=== PATIENT | female | born 1960 | race Caucasian/White ===

== ENCOUNTER 2017-12-26 19:40 | Emergency (ER) | payer OTHER ==
[2017-12-26 20:24] LABS: BASO % 0.5 % (0.0-2.0); EOS # 0.1 K/uL (0.0-0.7); EOS % 1.1 % (0.0-4.0); HEMOGLOBIN 12.1 g/dL (11.0-16.0); LYMPH # 0.9 K/uL (1.0-4.3); LYMPH % 10.2 % (20.0-40.0); MEAN CORPUSCULAR HEMOGLOBIN 30.2 pg (27.0-31.0); MEAN CORPUSCULAR HGB CONC 34.3 g/dL (33.0-37.0); MEAN PLATELET VOLUME 8.5 fL (7.2-11.7); MONO # 1.3 K/uL (0.0-0.8); MONO % 13.7 % (0.0-10.0); NEUT # 6.9 K/uL (1.8-7.0); NEUT % 74.5 % (50.0-75.0); RBC 4.02 Mil/uL (3.80-5.20); RED CELL DISTRIBUTION WIDTH 13.3 % (11.5-14.5); WHITE BLOOD COUNT 9.2 K/uL (4.8-10.8)
[2017-12-26 20:32] LABS: SQUAMOUS EPITHIAL 5 /hpf (0-5); URINE BACTERIA RARE (<OCC); URINE BILIRUBIN NEGATIVE (NEGATIVE); URINE BLOOD 2+ (NEGATIVE); URINE CLARITY Hazy (Clear); URINE COLOR Yellow (YELLOW); URINE GLUCOSE (UA) NORMAL (Normal); URINE LEUKOCYTE ESTERASE NEG Leu/uL (Negative); URINE PROTEIN 2+ mg/dL (NEGATIVE); URINE UROBILINOGEN NORMAL mg/dL (0.2-1.0)
--- NOTE | 2017-12-26 20:32 | C.PDOC ---
History Of Present Illness 57 y/o female presents to the ED for abdominal pain. Patient is complaining of nausea, vomiting, and a reduced appetite for the past 7 days intermittently. She felt her symptoms worsened today prompting her to come into ED. Patient describes her abdominal pain a 5 out of 10. Denies any fever or chills. PMD:None provided Time Seen by Provider: 12/26/17 20:30 Chief Complaint (Nursing): Abdominal Pain History Per: Patient History/Exam Limitations: no limitations Onset/Duration Of Symptoms: Days (x7) Current Symptoms Are (Timing): Worse Location Of Pain/Discomfort: Diffuse Quality Of Discomfort: "Pain" Associated Symptoms: Nausea, Vomiting, Loss Of Appetite. denies: Fever, Chills Recent travel outside of the [place]: No Past Medical History Vital Signs: Last Vital Signs Temp 99.0 F 12/26/17 19:44 Pulse 84 12/26/17 19:44 Resp 18 12/26/17 19:44 BP 174/84 H 12/26/17 19:44 Pulse Ox 100 12/26/17 21:27 - Medical History PMH: HTN Denies: Chronic Kidney Disease Surgical History: Tonsillectomy Family History: States: No Known Family Hx - Social History Hx Tobacco Use: No Hx Alcohol Use: Yes Hx Substance Use: No - Immunization History Hx Tetanus Toxoid Vaccination: No Hx Influenza Vaccination: Yes Hx Pneumococcal Vaccination: No Review Of Systems Constitutional: Positive for: Other (reduced appetite). Negative for: Fever, Chills Gastrointestinal: Positive for: Nausea, Vomiting, Abdominal Pain (x7 days) Physical Exam - Physical Exam Appears: Non-toxic, No Acute Distress Skin: Warm, Dry Head: Normacephalic Eye(s): bilateral: Normal Inspection Oral Mucosa: Moist Neck: Trachea Midline, Supple Chest: Symmetrical Cardiovascular: Rhythm Regular Respiratory: No Rales, No Rhonchi, No Wheezing Gastrointestinal/Abdominal: Tenderness (diffused abdominal tenderness), Guarding , No Rebound Extremity: Normal ROM Extremity: Bilateral: Atraumatic Neurological/Psych: Oriented x3 Gait: Steady ED Course And Treatment - Laboratory Results Result Diagrams: 12/26/17 20:20 12/26/17 20:20 O2 Sat by Pulse Oximetry: 100 (RA) Pulse Ox Interpretation: Normal Reevaluation Time: 22:32 Reassessment Condition: Improved Medical Decision Making Medical Decision Making: Upon provider reevaluation patient is feeling better, is medically stable, and requires no further treatment in the ED at this time. Patient will be discharged home with Rx for flagyl, zofran, naproxen . Counseling was provided and all questions were answered regarding diagnosis and need for follow up with the referred clinic. There is agreement to discharge plan. Return if symptoms persist or worsen.. Copies of blood work and ct scan given Disposition Counseled Patient/Family Regarding: Studies Performed, Diagnosis, Need For Followup, Rx Given - Disposition Referrals: [facility] [Outside] [facility] [Outside] Disposition: HOME/ ROUTINE Disposition Time: 20:31 Condition: FAIR Additional Instructions: Please return if symptoms recur Prescriptions: Metronidazole [Flagyl] 500 mg PO TID #21 tablet Naproxen [Naprosyn] 1 tab PO BID PRN #25 tab PRN Reason: Pain Ondansetron ODT [Zofran ODT] 1 odt PO BID PRN #6 odt PRN Reason: Nausea/Vomiting Instructions: Colic (DC) Forms: [employer] (Mosotho) - Clinical Impression Clinical Impression: Abdominal pain, Lesion of adrenal gland, Liver lesion, Colitis, nonspecific - Scribe Statement The provider has reviewed the documentation as recorded by the Scribe ( Rebecca Manuel) All medical record entries made by the Scribe were at my direction and personally dictated by me. I have reviewed the chart and agree that the record accurately reflects my personal performance of the history, physical exam, medical decision making, and the department course for this patient. I have also personally directed, reviewed, and agree with the discharge instructions and disposition.
[2017-12-26 20:36] LABS: ALB/GLOB RATIO 1.1 (1.0-2.1); ALBUMIN 3.8 g/dL (3.5-5.0); CALCIUM 8.5 mg/dl (8.6-10.4); GFR AFRICAN-AMERICAN > 60; GFR NON-AFRICAN AMERICAN > 60
[2017-12-26 20:46] LABS: ALT/SGPT 29 U/L (9-52); AST/SGOT 30 U/L (14-36); BLOOD UREA NITROGEN 10 mg/dL (7-17)
[2017-12-26] MEDS ORDERED: Potassium Chloride 20 mEq ER Tab PO STA (21:14)
[2017-12-26] MEDS ORDERED: Potassium Chloride 20 mEq ER Tab PO ONE (21:18)
[2017-12-26] MEDS ORDERED: Potassium Chloride 20 mEq 100 ML ONE (21:18)
[2017-12-26] MEDS ORDERED: Iodixanol 320 MG/ML 100 ML BOTTLE IV ONE (21:19)
--- NOTE | 2017-12-26 22:09 | CT ---
EXAM: CT Abdomen and Pelvis With Intravenous Contrast CLINICAL HISTORY: 57 years old, female; Pain and signs and symptoms; Vomiting; Abdominal pain; Generalized; Additional info: Abd pain, nausea/vomiting TECHNIQUE: Axial computed tomography images of the abdomen and pelvis with intravenous contrast. All CT scans at this facility use one or more dose reduction techniques, viz.: automated exposure control; ma/kV adjustment per patient size (including targeted exams where dose is matched to indication; i.e. head); or iterative reconstruction technique. Coronal and sagittal reformatted images were created and reviewed. CONTRAST: 100 mL of visipaque administered intravenously. COMPARISON: No relevant prior studies available. FINDINGS: Lung bases: Minimal atelectasis/scarring. Mediastinum: Moderate-sized hiatal hernia. ABDOMEN: Liver: Probable mild fatty infiltration. Few < 0.5 cm lesions. Gallbladder and bile ducts: No calcified stones. No ductal dilation. Pancreas: No ductal dilation. No mass. Spleen: No splenomegaly. Adrenals: 1.7 x 1.6 x 2.0 cm lesion within RIGHT adrenal gland, indeterminate by CT criteria. Nodular hypertrophy of LEFT adrenal gland. Kidneys and ureters: No mass. Peripelvic cysts. No hydronephrosis. Stomach and bowel: Mild to predominantly moderate mural thickening of large bowel. Mild stranding within adjacent fat. No obstruction. PELVIS: Appendix: Normal caliber. No inflammation. Bladder: Unremarkable. Reproductive: Unremarkable as visualized. ABDOMEN and PELVIS: Intraperitoneal space: No significant fluid collection. No free air. Bones/joints: Mild degenerative changes of lower thoracic spine. Facet osteoarthrosis within lower lumbar spine with anterolisthesis. No acute fracture. Soft tissues: Small umbilical hernia containing fat. Small midline ventral hernia containing fat. Vasculature: Unremarkable. No aneurysm. Lymph nodes: No pathologically enlarged lymph nodes. IMPRESSION: 1. Colitis, nonspecific. Consider inflammatory or infectious etiologies. 2. Adrenal lesion, indeterminate. Recommend nonemergent MRI. 3. Liver lesions. For patients with low to average risk of malignancy, no further follow-up is necessary. For patients with high risk of malignancy (known malignancy that can metastasize or other risk factors), recommend follow-up abdominal CT or MR in 6 months. 4. Incidental/non-acute findings are described above.
[2017-12-26 23:31] VITALS: BP 121/72; PULSE 72; RESP 16; TEMP 100; O2SAT 96
== END 2017-12-26 23:33 | disposition home or self-care (01) ==
LOC: C.ER 19:40
DX: K52.9 Noninfective gastroenteritis and colitis, unspecified (principal); E27.9 Disorder of adrenal gland, unspecified; K76.9 Liver disease, unspecified; R10.9 Unspecified abdominal pain
CPT/HCPCS: 74177; 80053; 81001; 85025; 96361; 96374; 96375; 99284; J1885; J2405; J3480; Q9967

== ENCOUNTER 2018-04-24 12:22 | Emergency (ER) | payer MEDICAID, OTHER ==
--- NOTE | 2018-04-24 15:51 | C.PDOC ---
History Of Present Illness 57-year-old female, presents to the emergency department complaining of pain and swelling to her left lower leg and ankle x3 months. Pain is intermittent in nature, associated with bumps on leg that are painful to touch. States she was seen by her doctor who did bloodwork, which was normal. She was given antibiotic , which she took with relief of symptoms, but then they returned. Pt received antibiotic last week again, cannot recall the name. She denies any fever, numbness/weakness of extremity, or any other associated symptoms. Time Seen by Provider: 04/24/18 13:33 Chief Complaint (Nursing): Lower Extremity Problem/Injury History Per: Patient History/Exam Limitations: no limitations Current Symptoms Are (Timing): Still Present Severity: Moderate Past Medical History Reviewed: Historical Data, Nursing Documentation, Vital Signs Vital Signs: Last Vital Signs Temp 98.9 F 04/24/18 16:01 Pulse 71 04/24/18 16:01 Resp 16 04/24/18 16:01 BP 137/87 04/24/18 16:01 Pulse Ox 96 04/24/18 17:31 - Medical History PMH: HTN Surgical History: Tonsillectomy Family History: States: No Known Family Hx - Social History Hx Tobacco Use: No Hx Alcohol Use: Yes Hx Substance Use: No - Immunization History Hx Tetanus Toxoid Vaccination: No Hx Influenza Vaccination: No Hx Pneumococcal Vaccination: No Review Of Systems Constitutional: Negative for: Fever, Chills Gastrointestinal: Negative for: Nausea, Vomiting Musculoskeletal: Positive for: Foot Pain (+ankle). Negative for: Leg Pain Skin: Negative for: Rash Neurological: Negative for: Weakness, Numbness Physical Exam - Physical Exam Appears: Non-toxic, No Acute Distress Skin: Normal Color, Warm, Dry, No Rash Head: Atraumatic, Normacephalic Eye(s): bilateral: Normal Inspection, EOMI Nose: Normal Oral Mucosa: Moist Lips: Normal Appearing Neck: Normal ROM Chest: Symmetrical Respiratory: No Accessory Muscle Use Extremity: Normal ROM, Pedal Edema (left), No Calf Tenderness, Other (Left lower extremity: swelling around ankle and foot; mild erythema to the pretibial area with tender nodule to the distal lateral tibial region ) Pulses: Left Dorsalis Pedis: Normal, Right Dorsalis Pedis: Normal Neurological/Psych: Oriented x3, Normal Speech Gait: Steady ED Course And Treatment O2 Sat by Pulse Oximetry: 96 (RA) Pulse Ox Interpretation: Normal Medical Decision Making Medical Decision Making: Impression: ankle edema, tender nodules LE Plan: * XR Ankle * Doppler US XR negative. Case discussed with DR De Leon who also examined patient. She recommended Doppler to rule out DVT, otherwise no signs of cellulitis. Doppler study was negative for DVT. The patient remained well in no acute distress. Patient already had outpatient labwork, and no clinical indication to repeat any labs as there is no acute signs of signs of cellulitis or gout. Discussed result with patient and explain the symptoms likely related to erythema nodusum and will need further evaluation outpatient and to see rheumatology. Provide patient with name of DR Jimenez. Patient feels comfortable going home and will be discharged. Instructed to return to ER if symptoms worsen or new symptoms arise. Disposition Counseled Patient/Family Regarding: Studies Performed, Diagnosis, Need For Followup - Disposition Referrals: Jaden Jimenez MD [Staff Provider] - Rebecca Barker MD [Medical Doctor] - Disposition: HOME/ ROUTINE Disposition Time: 15:48 Condition: STABLE Additional Instructions: Follow up with your primary medical doctor and rhumatologist for further evaluation. Take naproxen or anti-inflammatory inflammation. Return to the emergency department at any time if symptoms persist or worsen Instructions: Dependent Edema (DC) Forms: [facility] (Croatian) - POA Present On Arrival: None - Clinical Impression Clinical Impression: Erythematous skin nodule, Leg edema - Scribe Statement The provider has reviewed the documentation as recorded by the Scribe (Sarah Jin) All medical record entries made by the Scribe were at my direction and personally dictated by me. I have reviewed the chart and agree that the record accurately reflects my personal performance of the history, physical exam, medical decision making, and the department course for this patient. I have also personally directed, reviewed, and agree with the discharge instructions and disposition.
[2018-04-24 16:02] VITALS: BP 137/87; PULSE 71; RESP 16; TEMP 98.9
--- NOTE | 2018-04-24 16:20 | RAD ---
Date of service: 04/24/2018 PROCEDURE: Left Ankle Radiographs. HISTORY: pain and swelling COMPARISON: None FINDINGS: BONES: No acute fracture or destructive bony lesion identified. JOINTS: Normal. No osteoarthritis. Ankle mortise maintained. Talar dome intact SOFT TISSUES: Prominent lateral malleolar soft tissue edema. OTHER FINDINGS: None. IMPRESSION: No acute fracture or dislocation. Prominent lateral malleolar soft tissue edema identified.
[2018-04-24 16:43] VITALS: O2SAT 96
--- NOTE | 2018-04-25 10:34 | VASCLAB ---
Date of service: 04/24/2018 PROCEDURE: Left Lower Extremity Venous Duplex Exam. HISTORY: Left leg pain and swelling PRIORS: None. TECHNIQUE: Left common femoral, femoral, popliteal and posterior tibial, peroneal and great saphenous veins were evaluated. Flow was assessed with color Doppler, compressibility, assessment of phasic flow and augmentation response. Report prepared by BENNY Harrison FINDINGS: LEFT: 1. Common Femoral Vein: 1.1. Compressibility - Fully compressible: Thrombus - None : Flow - Phasic: Augmentation -Normal: Reflux - None. 2. Femoral Vein: 2.1. Compressibility - Fully compressible: Thrombus - None: Flow - Phasic: Augmentation -Normal: Reflux - None. 3. Popliteal Vein: 3.1. Compressibility - Fully compressible: Thrombus - None: Flow - Phasic: Augmentation -Normal: Reflux - None. 4. Posterior Tibial Vein: 4.1. Compressibility - Fully compressible: Thrombus - None: Flow - Phasic: Augmentation -Normal: Reflux - None. 5. Peroneal Vein: 5.1. Compressibility - Fully compressible: Thrombus - None: Flow - Phasic: Augmentation -Normal: Reflux - None. 6. Great Saphenous Vein: 6.1. Compressibility - Fully compressible: Thrombus - None: Flow - Phasic: Augmentation - Normal: Reflux - None. OTHER FINDINGS: IMPRESSION: No evidence of deep or superficial vein thrombosis of the left lower extremity with excellent venous flow. Normal valve function noted of the left side. Normal venous flow noted in the right common femoral vein.
== END 2018-04-24 16:01 | disposition home or self-care (01) ==
LOC: C.ER 12:22
DX: L53.9 Erythematous condition, unspecified (principal); R60.0 Localized edema